=== PATIENT | male | born 2000 | race Caucasian/White ===

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

== ENCOUNTER 2021-12-18 06:25 | Emergency (ER) | payer MEDICAID ==
[2021-12-18 06:37] VITALS: BP 128/87; PULSE 90
== END 2021-12-18 07:25 | disposition home or self-care (01) ==
LOC: LB.ED 06:25
DX: M54.50 Low back pain, unspecified (principal)
CPT/HCPCS: 99283